=== PATIENT | female | born 1940 | race Caucasian/White ===

== ENCOUNTER → 2023-06-16 13:22 | Outpatient (REF) | payer MEDICARE, SELFPAY | LOC: HWRAD 13:22 | PROVIDERS: ATTENDING PHYSICIAN Internal Medicine Cardiovascular Disease; FAMILY PHYSICIAN Family Medicine | DX: R06.02 Shortness of breath (principal) | CPT/HCPCS: 71046 ==

== ENCOUNTER → 2023-07-18 08:16 | Outpatient (REF) | payer MEDICARE, SELFPAY | LOC: HWRCS 08:16 | PROVIDERS: ATTENDING PHYSICIAN Internal Medicine Cardiovascular Disease; FAMILY PHYSICIAN Family Medicine | DX: R06.02 Shortness of breath (principal) | CPT/HCPCS: 93306 ==

== ENCOUNTER → 2024-03-01 11:04 | Outpatient (REF) | payer MEDICARE, SELFPAY | LOC: HWRAD 11:04 | PROVIDERS: ATTENDING PHYSICIAN Nurse Practitioner Family; FAMILY PHYSICIAN Family Medicine | DX: R31.9 Hematuria, unspecified (principal) | CPT/HCPCS: 76770 ==

== ENCOUNTER 2024-04-02 22:15 | Emergency (ER) | payer MEDICARE, SELFPAY ==
[2024-04-02 22:23] VITALS: BP 159/90
[2024-04-02 22:57] VITALS: BMI 26.1
[2024-04-03 01:49] VITALS: BP 144/60
--- NOTE | 2024-04-03 02:06 | ED.GENMED ---
History of Present Illness
General
Chief Complaint: Nose Bleed
Source: patient
Exam Limitations: none
Time Seen by Provider: 04/03/24 00:36
Nursing documentation reviewed up to this point in time: agreed with
History of Present Illness
History of Present Illness:
Patient with history of paroxysmal atrial fibrillation on Eliquis, presents to ED secondary to persistent nosebleed, which occurred spontaneously while she was at home. Patient states that similar episode occurred 1 day prior, which was able to be
blood pressure in about 20 minutes. Denies dizziness or weakness. Denies shortness of breath. Denies nausea or vomiting. Denies direct trauma. Denies recent illness.
Review of Systems
Review of Systems
Allergies reviewed?: Yes
All Other Systems: ROS reviewed and negative except as documented in HPI and ROS
Constitutional: Reports no symptoms
EENT: Reports other (Epistaxis)
Respiratory: Denies trouble breathing
Musculoskeletal: Reports no symptoms
Skin: Reports no symptoms
Neurological: Reports no symptoms; Denies dizzy or weakness
Phy Exam
Physical Exam
Physical Exam:
Physical Exam
General: no apparent distress, not acutely ill. afebrile.
Head: nc/at. eomi. Nose: b/l blood clots noted without active bleeding. blood clot noted in posterior pharynx
Neck: supple. normal range of motion
Neuro: alert and oriented x 3. no focal neurological deficits
Skin: no rash
Psychiatric: well kept. interactive and cooperative
Extremities: no edema. no calf tenderness.
Course
Vital Signs
Initial and Last Documented VS:
Initial Vital Signs
Temp Pulse Resp BP Pulse Ox
97.8 F 82 21 159/90 99
04/02/24 22:23 04/02/24 22:23 04/02/24 22:23 04/02/24 22:23 04/02/24 22:23
Last Documented Vital Signs
Temp Pulse Resp BP Pulse Ox
97.8 F 81 21 144/60 94
04/02/24 22:23 04/03/24 01:49 04/02/24 22:23 04/03/24 01:49 04/03/24 01:49
Procedures
Nosebleed
Drug treatment: none
Treatment: local pressure applied and Epistat nasal catheter
Post treatment bleeding: none- good control
MDM/Problems Addressed
MDM/Problems Addressed:
Blood clot noted in posterior pharynx, removed with use of forcep. Afterwards, Rhino nasal packing applied to left nostril, with complete cessation of bleeding. Patient observed for 1 hour afterwards, without any further bleeding. Patient will be
discharged home in stable condition, with recommendation to follow-up with her ENT physician, Dr. Cotton, as outpatient.
*Critical Care Note
Total Time (30-74mins, 75-104mins- exclusive of procedures): Not Applicable
ED Attending Note
-
Portions of this chart may have been created with voice recognition software.� Occasional wrong word or��sound alike� substitutions may have occurred due to the inherent limitations of voice recognition software.
Discharge Plan
Departure
Patient Disposition: Home (Routine Discharge)
Date of Disposition: 04/03/24
Time of Disposition: 02:06
Patient with high blood pressure during this ER visit?: Yes
Condition: Good
Discharge Problem:
Epistaxis
Instructions: Nosebleeds (DC)
Prescriptions:
No Action
metoprolol succinate [Toprol XL] 25 MG tablet extended release 24 hr
12.5 mg PO DAILY
apixaban [Eliquis] 5 MG tablet
5 mg PO BID
Referrals:
Yemi Cotton MD [Active] -
Albina Park MD [Family Provider] -
Activity Restrictions/Additional Instructions:
As discussed, please follow-up with your ENT physician for reevaluation.
Interventions
Interventions:
*Risk Screen - Suicide Last Done: 04/02/24 22:22
*General Assessment Last Done: 04/02/24 22:22
*Neglect/Abuse Screening Last Done: 04/02/24 22:22
ED- Fall Risk Assessment Last Done: 04/02/24 22:58
*ED COVID-19 Vaccine History Last Done: 04/02/24 22:58
*Nursing Disposition Last Done: 04/03/24 02:15
ED-EENT Assessment Last Done: 04/03/24 00:06
Discharge Date and Time
Discharge Date/Time: 04/03/24 02:15
Print Language: GUATEMALAN
== END 2024-04-03 02:15 | disposition home or self-care (01) ==
LOC: EMR 22:15
PROVIDERS: EMERGENCY PHYSICIAN Emergency Medicine; FAMILY PHYSICIAN Family Medicine
DX: R04.0 Epistaxis (principal); I48.0 Paroxysmal atrial fibrillation; Z79.01 Long term (current) use of anticoagulants
CPT/HCPCS: 30901; 99282

== ENCOUNTER 2024-04-16 00:54 | Emergency (ER) | payer MEDICARE, SELFPAY ==
--- NOTE | 2024-04-16 01:16 | EDRN ---
the back of her throat. Pt stated this happened 2 weeks ago also.
[2024-04-16 01:17] VITALS: BP 147/64
--- NOTE | 2024-04-16 02:19 | ED.GENMED ---
History of Present Illness
General
Chief Complaint: Nose Bleed
Time Seen by Provider: 04/16/24 02:19
History of Present Illness
History of Present Illness:
TIME OF INITIAL ENCOUNTER:
HPI: Patient presents with nosebleed on Eliquis. She was recently here 2 weeks ago and rapid Rhino was placed and she was to follow-up Dr. Cotton. Over the last few hours, the patient's symptoms worsened again. She has blood clot stuck in the left
nostril. She can breathe freely out of the right side. She called her grinding machine operator portable who told her that she could stop Eliquis for a total of 48 hours.
EXAM:
GENERAL: Obvious nosebleed noted with large amount of blood clots that she brought up in the emesis basin
HEENT: Blood clots noted in the left nostril, some dried blood noted in the right
NEUROLOGIC: Good strength all extremities, no coordination deficits
PSYCHIATRIC: Appropriate mental status, normal insight and judgement
EXTREMITIES: Nontender, no edema, moves all extremities equally
SKIN: No rash, no lesions
NUMBER AND COMPLEXITY OF PROBLEMS ADDRESSED AT THE ENCOUNTER
� Chronic conditions affecting care: Atrial fibrillation
� Acute Exacerbation and/or Progression of Chronic Illness: This is an acute problem
� Differential Diagnosis includes: Anterior nosebleed, posterior nosebleed, dry air, complication of Eliquis
AMOUNT AND/OR COMPLEXITY OF DATA TO BE REVIEWED AND ANALYZED
� I performed an independent evaluation of and my interpretation is:
EKG:
CT:
X-rays:
Laboratory Studies:
Other:
� Review of other/old records: I reviewed the records from last visit when she had the nosebleed and it was noted that rapid Rhino was used
� Clinical information was obtained by an independent historian: I spoke to at bedside
� Prescriptions/Medications Considered but not given:
� Further testing considered but not performed:
RISK OF COMPLICATIONS AND/OR MORBIDITY OR MORTALITY OF PATIENT MANAGEMENT
� Social determinants of health affecting care: Lives at home
� Discussion with other providers:
� Escalation of care including admission/observation vs risk of discharge considered: I initially tried to suction and use forceps to remove blood clots as she was not able to forcefully expel the clots by blowing her nose. Used
TXA. Bleeding persisted, rapid Rhino placed.
ANY OTHER UPDATES:
4 AM: I reassessed patient, very scant if any amount of bleeding noted, I visualized the posterior oropharynx and there was no bleeding at all
Phy Exam
Physical Exam
Physical Exam:
See HPI
Course
Orders/Labs/Results
Orders:
Orders
04/16/24 02:17
Tranexamic Acid 1,000 mg .ROUTE .STK-MED ONE
Vital Signs
Initial and Last Documented VS:
Initial Vital Signs
Temp Pulse Resp BP Pulse Ox
36.8 C 100 24 147/64 95
04/16/24 01:17 04/16/24 01:17 04/16/24 01:17 04/16/24 01:17 04/16/24 01:17
Last Documented Vital Signs
Temp Pulse Resp BP Pulse Ox
36.8 C 85 18 134/65 95
04/16/24 01:17 04/16/24 04:00 04/16/24 04:00 04/16/24 04:00 04/16/24 04:00
Procedures
Nosebleed
Drug treatment: Tranexamic Acid
Treatment: other (5.5 cm rapid Rhino)
Post treatment bleeding: none- good control
Additional information:
This was soaked with TXA
*Critical Care Note
Total Time (30-74mins, 75-104mins- exclusive of procedures): Not Applicable
ED Attending Note
-
Portions of this chart may have been created with voice recognition software.� Occasional wrong word or��sound alike� substitutions may have occurred due to the inherent limitations of voice recognition software.
Discharge Plan
Departure
Patient Disposition: Home (Routine Discharge)
Date of Disposition: 04/16/24
Time of Disposition: 04:27
Patient with high blood pressure during this ER visit?: Yes
Discharge Problem:
Epistaxis
Instructions: Nosebleeds (DC), BLOOD PRESSURE
Prescriptions:
No Action
metoprolol succinate [Toprol XL] 25 MG tablet extended release 24 hr
12.5 mg PO DAILY
Eliquis 5 MG tablet
5 mg PO BID
Referrals:
Yemi Cotton MD [Active] - Follow up in 2-3 days
Albina Park MD [Family Provider] -
Activity Restrictions/Additional Instructions:
I used TXA as well as rapid Rhino. Follow-up with Dr. Cotton in the next 2 to 3 days for packing removal. Return here if worse or other concerns.
Interventions
Interventions:
*Risk Screen - Suicide Last Done: 04/16/24 01:12
*General Assessment Last Done: 04/16/24 01:12
*Neglect/Abuse Screening Last Done: 04/16/24 01:12
ED- Fall Risk Assessment Last Done: 04/16/24 01:12
*ED COVID-19 Vaccine History Last Done: 04/16/24 01:12
*Nursing Disposition Last Done: 04/16/24 04:40
ED-EENT Assessment Last Done: 04/16/24 02:55
Discharge Date and Time
Discharge Date/Time: 04/16/24 04:40
Print Language: [email or web address]
[2024-04-16 02:55] VITALS: BP 143/72
[2024-04-16 04:00] VITALS: BP 134/65
== END 2024-04-16 04:40 | disposition home or self-care (01) ==
LOC: EMR 00:54
PROVIDERS: EMERGENCY PHYSICIAN Emergency Medicine; FAMILY PHYSICIAN Family Medicine
DX: R04.0 Epistaxis (principal); I48.91 Unspecified atrial fibrillation; Z79.01 Long term (current) use of anticoagulants
CPT/HCPCS: 30901; 99282

== ENCOUNTER → 2024-06-07 07:56 | Outpatient (REF) | payer MEDICARE, SELFPAY | LOC: HWWDC 07:56 | PROVIDERS: ATTENDING PHYSICIAN Family Medicine | DX: Z12.31 Encounter for screening mammogram for malignant neoplasm of breast (principal) | CPT/HCPCS: 77063; 77067 ==

== ENCOUNTER → 2024-11-07 07:43 | Outpatient (REF) | payer MEDICARE, SELFPAY | LOC: HWRAD 07:43 | PROVIDERS: ATTENDING PHYSICIAN Family Medicine | DX: M25.551 Pain in right hip (principal); M25.552 Pain in left hip; M54.50 Low back pain, unspecified | CPT/HCPCS: 72110; 73522 ==